=== PATIENT | female | born 1985 | race Caucasian/White ===

== ENCOUNTER 2016-02-11 09:06 | Emergency (ER) | payer OTHER ==
[~2016-02-11] VITALS: Wt 74.0 kg
--- NOTE | 2016-02-11 09:55 | ERD ---
ER Documentation Chief Complaint Date/Time DATE: 02/11/16 TIME: 09:54 Chief Complaint COUGH X 1 WEEK HPI 30-year-old female who is deaf, otherwise healthy comes to the emergency room with cough for a week. 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 Patient describes as a dry cough, no fevers or chills and reports chest pain that is pleuritic in the center of her chest. She states that she had some blood-tinged sputum 2 days ago that resolved. No hemoptysis. ROS All systems reviewed and are negative except as per history of present illness. Medications Home Meds Active Scripts Naproxen* (Naprosyn*) 500 Mg Tablet, 500 MG PO BID Y for PAIN AND/OR INFLAMMATION, #30 TAB Prov:NICOLE RO PA-C 02/11/16 Prednisone* (Prednisone*) 20 Mg Tab, 40 MG PO DAILY for 4 Days, TAB Prov:NICOLE RO PA-C 02/11/16 Promethazine/Phenyleph/Codeine (Kphuvajfspbb-VI-Uolxzgb Syrup) 118 Ml Syrup, 1 TSP PO Q6, #4 OZ Prov:NICOLE RO PA-C 02/11/16 Reported Medications [none] No Conflict Check 09/11/14 Allergies Allergies: Coded Allergies: No Known Allergies (Verified Allergy, Mild, 02/11/16) PMhx/Soc History of Surgery: Yes (ECTOPIC RIGHT SIDE) Anesthesia Reaction: No Hx Neurological Disorder: No Hx Respiratory Disorders: No Hx Cardiac Disorders: No Hx Psychiatric Problems: No Hx Miscellaneous Medical Probl: No Hx Alcohol Use: No Hx Substance Use: No Hx Tobacco Use: No Smoking Status: Never smoker Physical Exam Vitals Vital Signs Date Time Temp Pulse Resp B/P Pulse Ox O2 Delivery O2 Flow Rate FiO2 02/11/16 09:10 98.4 108 20 117/65 99 Physical Exam General: Well-developed, well-nourished. The patient appears in no acute distress. HEENT: Head is normocephalic, atraumatic. No scleral icterus. Pupils are equal , round, and reactive. Oral mucous membranes are moist. No pharyngeal erythema. Neck: Supple. Nontender. Lungs: Clear to auscultation. Normal air movement. Reproducible chest wall tenderness in the anterior chest wall. Heart: Regular rate and rhythm. S1 and S2 are normal. No murmurs, gallops, or rubs. Abdomen: Soft, nontender, nondistended. Bowel sounds are normoactive. Extremities: No clubbing or cyanosis. Normal pulses. Moving extremities x 4. No weakness. Neurologic: Alert and oriented 3. No focal deficits. Skin: Normal turgor. No rash or lesions. Results 24 hrs PROCEDURE: Chest x-ray CLINICAL INDICATION: Pain. TECHNIQUE: One-view frontal. COMPARISON: None available FINDINGS: The cardiac silhouette is normal. 1 view study of the chest does not demonstrate any definite infiltrates. No pneumothorax is noted. No gross hilar abnormalities are noted. IMPRESSION: 1. No active cardiopulmonary changes noted on the frontal view of the chest. RPTAT: HH .Isaias Gloria MD, MD Date Time Electronically viewed and signed by .Isaias Gloria MD, on 02/11/2016 10: 26 Procedures/[facility] The patient is a 30-year-old female who comes in with an acute upper respiratory infection, presumed viral. Chest x-ray was unremarkable. The patient has a differential diagnosis of a viral upper respiratory infection, bacterial upper respiratory infection, bronchitis, pneumonia, pharyngitis, laryngitis, epiglottitis, croup, pneumonia. Patient has a normal pulmonary examination, clear breath sounds, normal pulse oximetry, with no corrective measures needed at this time. Fluids, rest, antipyretics were encouraged. Departure Diagnosis: Primary Impression: URI, acute Condition: NICOLE Askew PA-C Feb 11, 2016 09:55
--- NOTE | 2016-02-11 10:27 | RADRPT ---
PROCEDURE: Chest x-ray CLINICAL INDICATION: Pain. TECHNIQUE: One-view frontal. COMPARISON: None available FINDINGS: The cardiac silhouette is normal. 1 view study of the chest does not demonstrate any definite infiltrates. No pneumothorax is noted. No gross hilar abnormalities are noted. IMPRESSION: 1. No active cardiopulmonary changes noted on the frontal view of the chest. RPTAT: HH .Isaias Gloria MD, MD Date Time Electronically viewed and signed by .Isaias Gloria MD, on 02/11/2016 10:26 .G/
[2016-02-11] MEDS ORDERED: NAPR-260 PO (10:31)
[2016-02-11] MEDS ORDERED: PRED20TA PO (10:31)
[2016-02-11] MEDS ORDERED: PROM118S PO (10:31)
== END 2016-02-11 10:40 | disposition home or self-care (01) ==
LOC: FTE 09:06
DX: J06.9 Acute upper respiratory infection, unspecified (principal)
CPT/HCPCS: 71010; Z7502

== ENCOUNTER 2018-08-17 02:43 | Emergency (ER) | payer OTHER ==
[~2018-08-17] VITALS: Ht 162.6 cm; Wt 78.6 kg
[~2018-08-17 02:43] MED LIST: NAPR-985 PO; PRED20TA PO; PROM118S PO
[2018-08-17 02:47] VITALS: BP 118/69; PULSE 85; RESP 16; Ht 162.6 cm; Wt 78.6 kg
[2018-08-17] MEDS ORDERED: KETOROLAC 15 MG INJ IV STA (03:31)
[2018-08-17] MEDS ORDERED: SOD CHLORIDE 0.9% 1,000 ML IV ONE (04:00)
[2018-08-17] MEDS ORDERED: CEFTRIAXONE 1 GM/50 ML (PMX) 50 ML IVPB ONE (04:00)
[2018-08-17] MEDS ORDERED: AMOX1TAB10 PO (05:14)
[2018-08-17] MEDS ORDERED: SULF1TAB31 PO (05:14)
--- NOTE | 2018-08-19 19:24 | ERD ---
ER Documentation Chief Complaint Chief Complaint Sharp right ear pain x3 days now. 8/10 apin scale, deaf and mute. 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 This began 3 days ago. This is her first time with the symptoms. Pain is overall worsened. She reports nausea but denies any fevers or headache. She denies any photophobia or phonophobia. She denies any neck pain. She took Tylenol at home with some relief. An pmo analyst, Rebecca, ID number [id number] was used for assistance with translation. ROS All systems reviewed and are negative except as per history of present illness. Medications Home Meds Active Scripts Sulfamethoxazole/Trimethoprim* (Bactrim Ds* Tablet) 1 Each Tablet, 1 TAB PO BID, #20 TAB Prov:LYNN MARI PA-C 08/17/18 Amoxicillin/Potassium Clav (Amox-Clav 875-125 mg Tablet) 875-125 mg Tab, 1 TAB PO BID for 10 Days, #20 TAB Prov:LYNN MARI PA-C 08/17/18 Naproxen* (Naprosyn*) 500 Mg Tablet, 500 MG PO BID PRN for PAIN AND/OR INFLAMMATION, #30 TAB Prov:NICOLE RO PA-C 02/11/16 Prednisone* (Prednisone*) 20 Mg Tab, 40 MG PO DAILY for 4 Days, TAB Prov:NICOLE RO PA-C 02/11/16 Promethazine/Phenyleph/Codeine (Uxihzhjswpfa-IH-Hewroqr Syrup) 118 Ml Syrup, 1 TSP PO Q6, #4 OZ Prov:NICOLE RO PA-C 02/11/16 Reported Medications [none] No Conflict Check 09/11/14 Allergies Allergies: Coded Allergies: No Known Allergies (Verified Allergy, Mild, 08/17/18) PMhx/Soc History of Surgery: Yes (ECTOPIC RIGHT SIDE) Anesthesia Reaction: No Hx Neurological Disorder: No Hx Respiratory Disorders: No Hx Cardiac Disorders: No Hx Psychiatric Problems: No Hx Miscellaneous Medical Probl: No Hx Alcohol Use: No Hx Substance Use: No Hx Tobacco Use: No FmHx Family History: No diabetes Physical Exam Vitals Vital Signs Date Temp Pulse Resp B/P (MAP) Pulse Ox O2 O2 Flow FiO2 Time Delivery Rate 08/17/18 97.9 85 16 118/69 97 02:47 (85) Physical Exam Const: No acute distress Head: Atraumatic Eyes: Normal Conjunctiva ENT: Normal External Ears, Nose and Mouth. Patient has mild erythema and tenderness palpation of the right mastoid region. Patient has swelling and moisture present of the right external auditory canal. Unable to fully visualize the right tympanic membrane secondary to EAC swelling. The left tympanic membrane, EAC, and mastoid are normal on examination. Neck: Full range of motion. No meningismus. Resp: Clear to auscultation bilaterally Cardio: Regular rate and rhythm, no murmurs Abd: Soft, non tender, non distended. Normal bowel sounds Skin: No petechiae or rashes Back: No midline or flank tenderness Ext: No cyanosis, or edema Neur: Awake and alert Psych: Normal Mood and Affect Result Diagram: 08/17/180 08/17/180 Results 24 hrs Laboratory Tests Test 08/17/18 04:10 White Blood Count 8.4 10^3/ul Red Blood Count 4.57 10^6/ul Hemoglobin 12.5 g/dl Hematocrit 38.8 % Mean Corpuscular Volume 84.9 fl Mean Corpuscular Hemoglobin 27.4 pg Mean Corpuscular Hemoglobin Concent 32.2 g/dl Red Cell Distribution Width 13.8 % Platelet Count 241 10^3/UL Mean Platelet Volume 12.1 fl Immature Granulocytes % 0.100 % Neutrophils % 54.9 % Lymphocytes % 36.4 % Monocytes % 7.8 % Eosinophils % 0.6 % Basophils % 0.2 % Nucleated Red Blood Cells % 0.0 /100WBC Immature Granulocytes # 0.010 10^3/ul Neutrophils # 4.6 10^3/ul Lymphocytes # 3.0 10^3/ul Monocytes # 0.7 10^3/ul Eosinophils # 0.1 10^3/ul Basophils # 0.0 10^3/ul Nucleated Red Blood Cells # 0.0 10^3/ul Sodium Level 143 mmol/L Potassium Level 4.2 mmol/L Chloride Level 106 mmol/L Carbon Dioxide Level 27 mmol/L Anion Gap 10 Blood Urea Nitrogen 13 mg/dl Creatinine 0.58 mg/dl Est Glomerular Filtrat Rate mL/min > 60 mL/min Glucose Level 105 mg/dl Calcium Level 9.8 mg/dl Total Bilirubin 0.3 mg/dl Direct Bilirubin 0.00 mg/dl Indirect Bilirubin 0.3 mg/dl Aspartate Amino Transf (AST/SGOT) 62 IU/L Alanine Aminotransferase (ALT/SGPT) 69 IU/L Alkaline Phosphatase 75 IU/L Total Protein 8.2 g/dl Albumin 4.4 g/dl Globulin 3.80 g/dl Albumin/Globulin Ratio 1.15 Current Medications Medications Dose Sig/Justa Start Time Status Last (Trade) Ordered Route PRN Stop Time Admin Dose Reason Admin Ketorolac 15 mg ONCE STAT 08/17/18 DC 08/17/18 Tromethamine IV 03:31 04:14 (Toradol) 08/17/18 03:33 Sodium 1,000 ml @ Q1H ONCE 08/17/18 DC 08/17/18 Chloride 1,000 mls/hr IV 04:00 04:14 08/17/18 04:59 Ceftriaxone 50 ml @ ONCE ONCE 08/17/18 DC 08/17/18 Sodium 100 mls/hr IVPB 04:00 04:14 08/17/18 04:29 [place] [id number] Radiology Main Line: [phone] DIAGNOSTIC IMAGING REPORT Patient: ISABEL URIARTE : 1985 Age: 32 Sex: F MR #: [id number] DOS: 08/17/18 0000 Ordering MD: LYNN MARI PA-C Location: [facility] Room/Bed: PROCEDURE: CT scan of the facial bones without contrast. CLINICAL INDICATION: Right ear pain/mastoid pain. TECHNIQUE: CT scan of the facial bones without contrast was performed on a multidetector high-resolution CT scan. Standard CT scan of the facial bones without contrast protocols were performed. The total exam CTDI equals 29.39 mGy and the total exam DLP equals 566.53 mGy- cm. One or more of the following dose reduction techniques were used: - Automated exposure control. - Adjustment of the mA and/or kV according to patient size. Use of iterative reconstruction technique. Dicom images are available COMPARISON: None. FINDINGS: No evidence of facial fractures. Bony mineralization is normal. No focal bony blastic or lytic lesions. The temporomandibular joints are unremarkable. The paranasal sinuses are well pneumatized without mucosal thickening soft tissue masses air fluid levels or bony erosion or expansion. Nasal septum midline. Middle and inferior turbinates are unremarkable. Patency of the hiatus semilunaris bilaterally. Globes are symmetrical without proptosis or rupture. No intra or extraconal fluid collections or masses bilaterally. Optic nerves and ophthalmic muscles are unremarkable. Soft tissue density within the right external auditory canal and middle ear cavity that may all represent granulation tissue. Cholesteatoma cannot be excluded. Middle ear ossicles allowing for technique are unremarkable. There are several fluid filled air cells involving the lateral right mastoid and rule out mastoiditis. Remainder of both mastoids are unremarkable. The facial soft tissues are unremarkable. IMPRESSION: 1. Soft tissue density involving the right external auditory canal and middle ear cavity that may represent granulation tissue. Cholesteatoma cannot be excluded. Recommend clinical correlation ENT consultation. 2. Mild right mastoiditis. 3. No evidence of paranasal sinus disease. 4. Unremarkable orbits. 5. Unremarkable left mastoid. 6. No evidence of facial fractures. 7. Unremarkable temporomandibular joints. RPTAT:AAJJ Physician [place] Date Time Electronically viewed and signed by Physician [place] on 08/17/2018 04:09 BM/ CC: LYNN MARI PA-C [phone] Procedures/MDM 32-year-old female presenting to the emergency department with history, physical examination, CT orbits and facial bones consistent with acute mastoiditis. Patient is afebrile and nontoxic and well-appearing. She was significantly improved in the department with IV Toradol and IV Rocephin. Patient's no evidence of leukocytosis. I doubt anemia, serous bacterial infection, septic shock, meningitis, or other emergencies. I discussed this case with attending ED physician, Dr. Fontenot, who recommended 24-hour follow-up with ENT as an outpatient. Patient will be given prescription for Bactrim and Augmentin as well as naproxen for pain. Patient was otherwise stable for discharge and further outpatient follow-up. She was advised to return here immediately for any new or worsening or concerning symptoms. She understands and agrees with the diagnosis, plan, need for follow-up, return precautions. Departure Diagnosis: Primary Impression: Mastoiditis Condition: Fair Patient Instructions: Mastoidectomy Referrals: ARELI HOLLINGSWORTH MD,ADRIÁN HEMPHILL,HANH BURKETT,CANELO RIDDLE,ROSELINE TORRES,LOI KUMAR,TSERLING FERRIS Additional Instructions: SPECIALIST: YOU HAVE A MEDICAL CONDITION WHICH REQUIRES YOU TO SEE A SPECIALIST WITHIN THE NEXT 1-2 DAYS. PLEASE FOLLOW UP WITH YOUR PRIMARY PHYSICIAN FOR REFFERAL.IF YOU DO NOT HAVE A PRIMARY CARE PHYSICIAN AND/OR YOU CAN NOT AFFORD TO SEE A PHYSICIAN THE FOLLOWING RESOURCES HAVE BEEN SUPPLIED TO YOU. IT IS YOUR RESPONSIBILITY TO BE SEEN BY THE SPECIALIST: ENT LYNN MARI PA-C Aug 19, 2018 19:24
== END 2018-08-17 05:47 | disposition home or self-care (01) ==
LOC: FTE 02:43
DX: H70.001 Acute mastoiditis without complications, right ear (principal)
CPT/HCPCS: 70486; 80053; 85025; 96374; 96375; J0696; J1885; J7030; Z7502